=== PATIENT | female | born 1980 | race Caucasian/White ===

== ENCOUNTER 2017-03-13 13:10 | Emergency (ER) | payer OTHER ==
[~2017-03-13] VITALS: Ht 167.6 cm; Wt 127.5 kg
[2017-03-13 13:16] VITALS: BP 127/65
== END 2017-03-13 14:24 | disposition home or self-care (01) ==
LOC: ED 13:10
DX: T78.3XXA Angioneurotic edema, initial encounter (principal); Y92.89 Other specified places as the place of occurrence of the external cause
CPT/HCPCS: J7512

== ENCOUNTER 2017-04-12 15:13 | Emergency (ER) | payer OTHER ==
[~2017-04-12] VITALS: Ht 167.6 cm; Wt 128.4 kg
[2017-04-12 17:52] LABS: BASOPHIL % 0.1 % (0-2); PLATELET COUNT 345 x10^3mcL (130-400)
[2017-04-12 17:57] LABS: CALCIUM 8.3 mg/dL (8.5-10.1); CARBON DIOXIDE 25.8 mmol/L (21-32); CHLORIDE SERUM 107 mmol/L (98-107); CREATININE SERUM 0.7 mg/dL (0.6-1.0); GFR1 > 60 mL/min; GLUCOSE SERUM 81 mg/dL (74-106); POTASSIUM SERUM 3.6 mmol/L (3.5-5.1); RED CELL DISTRIBUTION WIDTH 19.5 % (11.5-14.5); SODIUM SERUM 143 mmol/L (136-145)
[2017-04-12 18:02] LABS: ALKALINE PHOSPHATASE 53 U/L (46-116); ALT/SGPT 41 U/L (14-59); AST/SGOT 29 U/L (15-37); BILIRUBIN TOTAL 0.34 mg/dL (0.20-1.00); CHOLESTEROL 162 mg/dL (<200); PHOSPHOROUS 3.1 mg/dL (2.5-4.9); TOTAL PROTEIN, SERUM 8.2 g/dL (6.4-8.2); URIC ACID 5.3 mg/dL (2.6-6.0)
[2017-04-12 18:03] LABS: TOTAL IRON BINDING CAPACITY 356 ug/dL (250-450)
[2017-04-12 18:04] LABS: HDL CHOLESTEROL 69 mg/dL (40-60); IRON 15 ug/dL (50-170)
[2017-04-12 19:09] VITALS: BP 101/59
== END 2017-04-12 19:09 | disposition home or self-care (01) ==
LOC: ED 15:13
PROVIDERS: Emergency Medicine
DX: D50.9 Iron deficiency anemia, unspecified (principal)
CPT/HCPCS: 36415; 83880; Q0092